=== PATIENT | female | born 1980 | race Caucasian/White ===

== ENCOUNTER 2017-04-10 04:27 | Emergency (ER) | payer OTHER ==
--- NOTE | ~2017-04-10 | CR282 ---
[facility]. [facility] A Service of [facility] & [facility] RADIOLOGY TEXT RESULTS PATIENT: MARGARETH CULVER LOCATION: SED : 80 UNIT #: [id number] AGE: [address]: Roddy Berg MD SEX: F ORDER DR: [id number] [place] [id number] E MR#: [id number] Acc #: [id number] NAME: MARGARETH CULVER : 1980 SEX: F STUDY DATE/TIME: 04/10/2017 5:01 UNIT: SED ROOM: STUDY DESCRIPTION: CR Wrist Min 3 View Rt Attending Physician: Roddy Berg M.D. Ordering Physician: Roddy Berg M.D. Primary Care Physician: Rock King M.D. MEDICAL IMAGING REPORT This report is preliminary unless electronic signature is present. EXAM Right wrist. INDICATION Trauma. Slammed a shower door on the wrist. FINDINGS Three views of the right wrist without comparison. There is no acute fracture or dislocation. Alignment is anatomic. No foreign body. IMPRESSION Negative right wrist. Dictated by... Yazan Krueger M.D. THIS IS AN ELECTRONICALLY VERIFIED REPORT Yazan Krueger M.D. at 04/10/2017 10:31 PM KOJO/justine TD: 04/10/2017 13:42 JOB #: [id number] MEDICAL IMAGING REPORT Page 1 of 1
== END 2017-04-10 05:44 | disposition home or self-care (01) ==
LOC: SED 04:27
DX: S63.501A Unspecified sprain of right wrist, initial encounter (principal); X50.9XXA Other and unspecified overexertion or strenuous movements or postures, initial encounter
CPT/HCPCS: 29280; 73110; 99283